=== PATIENT | female | born 1985 | race Caucasian/White ===

== ENCOUNTER → 2017-01-09 | Outpatient (CLI) | payer OTHER | END | disposition home or self-care (01) | LOC: LAB 10:39 | PROVIDERS: ATTEND Preventive Medicine Preventive Medicine/Occupational Environmental Medicine | DX: Z02.1 Encounter for pre-employment examination (principal) | CPT/HCPCS: 86787 ==

== ENCOUNTER 2021-12-09 15:39 | Emergency (ER) | payer OTHER, MEDICAID ==
[~2021-12-09] VITALS: Ht 160 cm; Wt 63.0 kg
[2021-12-09] MEDS ORDERED: MORPHINE SULFATE 4 MG/ML SYR/VIAL IV STA (16:20)
[2021-12-09] MEDS ORDERED: KETOROLAC TROMETH 60MG/2ML VIAL IM ONE (16:30)
[2021-12-09] MEDS ORDERED: ONDANSETRON HCL 4 MG/2 ML VIAL IV SCH (16:30)
[2021-12-09 18:56] VITALS: BP 111/63
== END 2021-12-09 20:02 | disposition home or self-care (01) ==
LOC: ER 15:42
DX: S27.0XXA Traumatic pneumothorax, initial encounter (principal); S22.39XA Fracture of one rib, unspecified side, initial encounter for closed fracture; V86.55XA Driver of 3- or 4- wheeled all-terrain vehicle (ATV) injured in nontraffic accident, initial encounter; Y93.89 Activity, other specified; Y92.89 Other specified places as the place of occurrence of the external cause; Y99.8 Other external cause status
CPT/HCPCS: 70450; 71250; 72125; 73610; 96372; 96374; 96375; 99291; J1885; J2270; J2405